=== PATIENT | female | born 1985 | race Caucasian/White ===

== ENCOUNTER → 2017-03-04 | Outpatient (CLI) | payer OTHER ==
[2017-03-04 09:55] LABS: ALT/SGPT 14 U/L (12-78); BLOOD UREA NITROGEN 13 mg/dl (7-18); BUN/CREATININE RATIO 15.4 (10-20); CALCIUM 8.9 mg/dl (8.5-10.1); CARBON DIOXIDE 28 mmol/L (21-32); CHLORIDE 104 mmol/L (98-107); CHOLESTEROL 152 mg/dl (0-200); CREATININE 0.87 mg/dl (0.60-1.20); GLUCOSE 92 mg/dl (70-99); POTASSIUM 3.8 mmol/L (3.5-5.1); SODIUM 138 mmol/L (136-145)
[2017-03-04 09:58] LABS: ALB/GLOB RATIO 1.1 (0.9-2); ALKALINE PHOSPHATASE 66 U/L (45-117); AST/SGOT 10 U/L (15-37); CHOLESTEROL/HDL RATIO 3.5; HDL CHOLESTEROL 44 mg/dl; LDL CHOLESTEROL CALCULATED 96 mg/dl; TRIGLYCERIDES 62 mg/dl (0-150); VERY LOW DENSITY LIPOPROT CALC 12 mg/dl
== END | disposition home or self-care (01) ==
LOC: C.LAB1850 07:14
PROVIDERS: ATTEND Family Medicine
DX: Z00.00 Encounter for general adult medical examination without abnormal findings (principal); Z13.1 Encounter for screening for diabetes mellitus; Z13.220 Encounter for screening for lipoid disorders

== ENCOUNTER → 2017-05-21 | Outpatient (CLI) | payer OTHER | END | disposition home or self-care (01) | LOC: C.PAPS 10:08 | PROVIDERS: ATTEND Obstetrics & Gynecology | DX: Z01.419 Encounter for gynecological examination (general) (routine) without abnormal findings (principal) ==

== ENCOUNTER 2019-03-23 07:38 | Inpatient (IN) ==
[2019-03-23] MEDS ORDERED: LACTATED RINGER'S 1,000 ML IV PRN (08:20)
[2019-03-23] MEDS ORDERED: OXYTOCIN 30 UNITS/500 ML BAG IV PRN ×2 (08:20→09:29)
[2019-03-23 08:44] LABS: Hematocrit (blood only) 39.6 % (37-47); Hemoglobin 14.2 g/dL (12.0-16.0); Mean Corpuscular Volume 87.6 fL (80-100); Platelet Count 245 K/uL (130-400); RDW Standard Deviation 41.8 fL (36.4-46.3); Red Blood Count 4.52 M/uL (4.2-5.4); White Blood Count 19.98 K/uL (4.8-10.8)
[2019-03-23 08:51] LABS: Mean Corpuscular Hgb Conc 35.9 g/dL (32-36)
[2019-03-23] MEDS ORDERED: OXYCODONE/ACETAMINOPHEN 5mg/325mg TAB PO PRN (09:29)
[2019-03-23] MEDS ORDERED: SUPERCREAM 0.870% 15 GM JAR EXT PRN (09:29)
[2019-03-23] MEDS ORDERED: HYDROCORTISONE ACETATE 25 MG SUPP PR PRN (09:29)
[2019-03-23] MEDS ORDERED: ACETAMINOPHEN 325 MG TAB PO PRN (09:29)
[2019-03-23] MEDS ORDERED: DIPHTHERIA/TETANUS/PERTUSSIS 0.5 ML SYR/VIAL IM ONE (09:29)
[2019-03-23] MEDS ORDERED: BENZOCAINE 20% AER SPR 82.5 GM CAN EXT PRN (09:29)
--- NOTE | 2019-03-23 10:23 | Delivery Summary ---
DATE OF OPERATION: 03/23/2019 The patient is a 33-year-old 2, para 1-0-0-1 white female who presented at 39 weeks with regular contractions. She presented to labor and delivery at 8 cm dilated. Membranes were ruptured for clear fluid at 9 cm. She rapidly went to full dilation and pushed effectively over intact perineum for delivery of a viable female . The infant was placed on the mother's abdomen after delivery and was vigorously crying and moving all 4 limbs. The cord was clamped and cut after 1 minute. Cord blood was obtained. The placenta was then expressed intact with a 3-vessel cord. A first-degree perineal laceration was repaired with 3-0 chromic in the usual fashion and 1% lidocaine as the anesthetic. Estimated blood loss was 250 mL. Mother and infant were doing well after delivery. I attest to the content of the Intraoperative Record and any orders documented therein. Any exception s are noted below.
[2019-03-23] MEDS: IBUPROFEN 600 MG TAB PO PRN ×2 (18:13→23:55)
[2019-03-23] MEDS: DOCUSATE SODIUM 100 MG CAP PO SCH (20:19)
[2019-03-24 06:49] LABS: Hematocrit (blood only) 36.6 % (37-47); Hemoglobin 12.7 g/dL (12.0-16.0); Mean Corpuscular Hgb Conc 34.7 g/dL (32-36); Mean Corpuscular Volume 89.7 fL (80-100); Mean Platelet Volume 9.8 fL (7.4-10.4); Platelet Count 251 K/uL (130-400); RDW Coefficient of Variation 13.2 % (11.5-14.5); RDW Standard Deviation 42.9 fL (36.4-46.3); Red Blood Count 4.08 M/uL (4.2-5.4); White Blood Count 18.66 K/uL (4.8-10.8)
--- NOTE | 2019-03-24 07:15 | Obstetrical Progress Note ---
Date of Service <Jacquelyn Reyes MD - Last Filed: 03/24/19 07:15> March 24, 2019 Assessment & Plan <Jacquelyn Reyes MD - Last Filed: 03/24/19 07:15> (1) Status post vaginal delivery: Eleanor is a 33 yo on PPD1 after at 39w - GBS -, Blood Type A+, Rubella immune -Vitals reviewed and WNL -patient is doing clinically well continue to work towards discharge goals - After discharge will have [address] Arroyo. Subjective <Jacquelyn Reyes MD - Last Filed: 03/24/19 07:15> Ambulation: ambulating normally Voiding: no voiding problems Passing Gas:: Yes Diet Tolerance:: regular diet Lochia:: Moderate Feeding Type:: breast feeding Current Pain Level(1-10): 3 examined at bedside Constitutional: no fever, no chills and no sweats Eyes: no worsening vision Respiratory: no cough and no dyspnea Cardiovascular: no chest pain, no palpitations, no edema and no calf pain Breast: no breast pain Gastrointestinal: no nausea and no vomiting Genitourinary (female): no dysuria and no urinary frequency Neurologic: no headache(s) Physical Exam <Jacquelyn Reyes MD - Last Filed: 03/24/19 07:15> Constitutional WD/WN, vitals as above no acute distress Respiratory normal respiratory effort, lungs clear to auscultation does not use accessory muscles Auscultation: no crackles, no rales, no rhonchi, no wheezes and no pleural rub Cardiovascular Rate/Rhythm: regular rate and regular rhythm Heart Sounds: normal S1 and normal S2; no gallop, no murmur and no cardiac rub Extremities: no calf tenderness and no pedal edema Gastrointestinal (Abdomen) Inspection/Auscultation: normal bowel sounds; abdomen not distended Percussion/Palpation: abdomen soft Genitourinary Uterus: fundus firm, palpable 1 cm below the umbilicus Results & Data <Jacquelyn Reyes MD - Last Filed: 03/24/19 07:15> Vital Signs (Past 12 Hours) Vital Signs Temp Pulse Pulse Resp BP BP 03/24/19 04:00 36.7 C 70 18 121/76 03/23/19 23:30 36.8 C 76 18 114/75 03/23/19 19:30 36.4 C L 75 18 112/63 03/23/19 19:28 75 112/63 <Galilea Hansen MD, FACOG - Last Filed: 03/24/19 08:06> Co-Signing Physician Notes Resident Physician Supervision Note: I interviewed and examined the patient. Discussed with Dr. Reyes and agree with findings and plan as documented in the note. Any exceptions or clarifications are listed here: [None] Documented By: Galilea Hansen MD, FACOG
[2019-03-24] MEDS: DOCUSATE SODIUM 100 MG CAP PO SCH ×2 (08:52→20:34)
[2019-03-24] MEDS: PRENATAL VITAMIN 1 TAB PO SCH (08:52)
[2019-03-24] MEDS: IBUPROFEN 600 MG TAB PO PRN ×2 (15:05→20:34)
[2019-03-24] MEDS ORDERED: BISACODYL 5 MG TABEC PO SCH (20:00)
--- NOTE | 2019-03-25 06:13 | Obstetrical Progress Note ---
Date of Service <Jacquelyn Reyes MD - Last Filed: 03/25/19 06:40> March 25, 2019 Assessment & Plan <Jacquelyn Reyes MD - Last Filed: 03/25/19 06:40> (1) Status post vaginal delivery: Eleanor is a 33 yo on PPD2 after at 39w - GBS -, Blood Type A+, Rubella immune -Vitals reviewed and WNL -patient is doing clinically well reviewed discharge instructions. ready for d/c - After discharge will have [address] Arroyo. Subjective <Jacquelyn Reyes MD - Last Filed: 03/25/19 06:40> Ambulation: ambulating normally Voiding: no voiding problems Passing Gas:: Yes Diet Tolerance:: regular diet Lochia:: Small Feeding Type:: breast feeding Current Pain Level(1-10): 2 examined at bedside Constitutional: no fever, no chills and no sweats Respiratory: no cough and no dyspnea Cardiovascular: no chest pain Breast: no breast pain Gastrointestinal: no abdominal pain, no nausea and no vomiting Genitourinary (female): no dysuria and no urinary frequency Neurologic: no headache(s) Physical Exam <Jacquelyn Reyes MD - Last Filed: 03/25/19 06:40> Constitutional WD/WN, vitals as above no acute distress Respiratory normal respiratory effort, lungs clear to auscultation does not use accessory muscles Auscultation: no crackles, no rales, no rhonchi, no wheezes and no pleural rub Cardiovascular Rate/Rhythm: regular rate and regular rhythm Heart Sounds: normal S1 and normal S2; no gallop, no murmur and no cardiac rub Extremities: no calf tenderness and no pedal edema Gastrointestinal (Abdomen) Inspection/Auscultation: normal bowel sounds; abdomen not distended Percussion/Palpation: abdomen soft Genitourinary OB Exam Abdomen: + fundal height Fundus: + firm and + relation to umbilicus (1 cm below) Results & Data <Jacquelyn Reyes MD - Last Filed: 03/25/19 06:40> Vital Signs (Past 12 Hours) Vital Signs Temp Pulse Resp BP 03/24/19 22:55 36.9 C 79 18 127/77 03/24/19 19:40 36.7 C 81 18 122/79 <Olivier Carrera MD, FACOG - Last Filed: 03/25/19 07:19> Co-Signing Physician Notes Resident Physician Supervision Note: I interviewed and examined the patient. Discussed with Dr. Reyes and agree with findings and plan as documented in the note. Any exceptions or clarifications are listed here: [None] Documented By: Olivier Carrera MD, FACOG
[2019-03-25 06:27] LABS: Hematocrit (blood only) 34.6 % (37-47)
[2019-03-25] MEDS: PRENATAL VITAMIN 1 TAB PO SCH (07:41)
[2019-03-25] MEDS: DOCUSATE SODIUM 100 MG CAP PO SCH (07:41)
[2019-03-25] MEDS ORDERED: BISACODYL 10 MG SUPP PR PRN (09:00)
== END 2019-03-25 13:55 | disposition home or self-care (01) | DRG 807 ==
LOC: OPB 07:38 → 4S1 07:43 → 4S2 20:25